=== PATIENT | female | born 1980 | race Caucasian/White ===

== ENCOUNTER 2017-01-16 14:04 | Emergency (ER) | payer SELFPAY ==
[2017-01-16] MEDS ORDERED: HYDROCODONE/APAP 5/325MG TABLET PO ONE (15:04)
[2017-01-16] MEDS ORDERED: Diph,Pert(Acell),Tet Vac 0.5 ML SYR IM ONE (15:39)
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
== END 2017-01-16 16:55 | disposition home or self-care (01) ==
LOC: ER 14:04
DX: R07.89 Other chest pain (principal); M79.622 Pain in left upper arm; R51 Headache; M54.2 Cervicalgia; R68.84 Jaw pain; R41.0 Disorientation, unspecified; G89.11 Acute pain due to trauma; V49.49XA Driver injured in collision with other motor vehicles in traffic accident, initial encounter
CPT/HCPCS: 70450; 70491; 71020; 90715; 96372; 99283; 99284

== ENCOUNTER 2017-04-30 14:35 | Emergency (ER) | payer SELFPAY ==
[2017-04-30] MEDS ORDERED: 0.9 % SODIUM CHLORIDE 1,000 ML BAG IV ONE ×2 (14:54→14:55)
[2017-04-30] MEDS ORDERED: DIPHENHYDRAMINE HCL IV 50 MG/ML VIAL IVP ONE (14:55)
[2017-04-30] MEDS ORDERED: PROMETHAZINE HCL 25 MG/ML VIAL IVP ONE (14:55)
[2017-04-30] MEDS ORDERED: MORPHINE SULFATE 5 MG/ML PFS IVP ONE (14:55)
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
[2017-04-30 15:39] LABS: HEMATOCRIT 43.7 % (35.0-47.0); HEMOGLOBIN 15.4 gm/dl (11.6-16.0); MEAN CELL VOLUME 87.2 fl (81-97); MEAN CORPUSCULAR HEMOGLOBIN 30.7 pg (27-33); MEAN CORPUSCULAR HGB CONC 35.2 g/dl (32-36); MEAN PLATELET VOLUME 10.4 fl (7.4-10.4); PLATELET COUNT 282 K/uL (130-400); RED BLOOD COUNT 5.01 M/uL (3.80-5.40); RED CELL DISTRIBUTION WIDTH 12.1 % (11.5-14.5); WHITE BLOOD COUNT W/O DIFF 16.1 K/uL (4.2-12.2)
[2017-04-30 15:58] LABS: URINE APPEARANCE CLEAR; URINE BILIRUBIN NEGATIVE (NEGATIVE); URINE BLOOD NEGATIVE (NEGATIVE); URINE COLOR YELLOW; URINE GLUCOSE (UA) NEGATIVE (NEGATIVE); URINE KETONE NEGATIVE (NEGATIVE); URINE LEUKOCYTE ESTERASE NEGATIVE (NEGATIVE); URINE NITRITE NEGATIVE (NEGATIVE); URINE PROTEIN NEGATIVE (NEGATIVE); URINE UROBILINOGEN 0.2 E.U./dL (0.20 - 1.00)
[2017-04-30 16:01] LABS: ALBUMIN 5.1 g/dL (4.0-5.0)
[2017-04-30 16:02] LABS: ALB/GLOB RATIO 1.7 (1.1-1.8); ALKALINE PHOSPHATASE 58 U/L (35-104); ALT/SGPT 31 U/L (<33); AST/SGOT 26 U/L (10.0-35.0); BLOOD UREA NITROGEN 7 mg/dL (6-20); CREATININE 0.6 mg/dL (0.5-0.9); EST GLOMERULAR FILTRATION RATE > 60 mL/min; GLUCOSE,RANDOM 117 mg/dL (74-109); LIPASE 13 U/L (13-60); TOTAL PROTEIN 8.1 g/dL (6.6-8.7)
[2017-04-30] MEDS ORDERED: HYDROMORPHONE HCL 1 MG/ML SYRINGE IVP ONE (16:19)
[2017-04-30] MEDS ORDERED: ONDANSETRON HCL IV 4 MG/2 ML VIAL IVP ONE (16:19)
--- NOTE | 2017-05-01 20:35 | CT SCAN REPORT ---
EXAM: CT SCAN ABDOMEN/PELVIS W CONTRAST HISTORY: MID ABDOMINAL PAIN WITH VOMITING FOR 15 HOURS. TECHNIQUE: Axial CT scan of the abdomen and pelvis performed following both oral and IV contrast administration utilizing a dose of 100 mL of Omnipaque-300 as the IV contrast. COMPARISON: None. FINDINGS: No calcified gallstones are seen within the gallbladder. Mild diffuse fatty infiltration of the liver with no focal hepatic mass evident. No definite splenic, adrenal, pancreatic, or renal mass identified. There is a small hiatal hernia. Oral contrast has not as yet reached the terminal ileum or cecum but I believe at least a portion of the appendix is visualized as a normal-caliber structure, with no definite appendicitis. No free intraperitoneal air or free intraperitoneal fluid identified. There is bilateral spondylolysis of L5 with degenerative disc disease at the lumbosacral interspace with mild spondylolisthesis of L5 on S1. IMPRESSION: 1. SMALL HIATAL HERNIA. 2. 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 3. NO APPENDICITIS SEEN. NO FREE AIR OR FREE FLUID EVIDENT. 4. MILD DIFFUSE FATTY INFILTRATION OF THE LIVER. JOB NUMBER: [id number] [facility]
== END 2017-04-30 18:44 | disposition home or self-care (01) ==
LOC: ER 14:35
DX: R10.13 Epigastric pain (principal); R11.2 Nausea with vomiting, unspecified
CPT/HCPCS: 99284 ×2; 96374; 96375; 96361; 83690; 80053; 81003; 81025; 85027; 74177; Q9967; J2405; J2270; J1170; J1200; J2550; J7030

== ENCOUNTER 2017-05-02 13:16 | Emergency (ER) | payer SELFPAY ==
--- NOTE | 2017-05-02 13:38 | Emergency Department Record ---
History of Present Illness - General Chief Complaint: Abdominal Pain Stated Complaint: ADOMINAL PAIN, CONSTIPATION Time Seen by Provider: 05/02/17 13:23 Source: Patient Mode of Arrival: Ambulatory Limitations: No limitations - History of Present Illness Initial Comments: 36 yo female presents with abdominal pain that started on the at 2am. She was seen for upper abdominal pain and vomiting. She had a CT scan that was negative. Since her DC home she has had some continued nausea and pain. The symptoms seem be related to eating or are worse with eating. No fevers. The pain now is more in the RUQ. She also reports a decrease in her BM's. No fever. No blood in the stool or vomiting. She has had a prior . She does feel constipated and bloated. MD Complaint: Abdominal pain -: Days(s) (2) Location: RUQ Radiation: RUQ Migration to: RUQ Quality: Aching Consistency: Constant Improves With: Nothing Worsens With: Eating Context: Other Associated Symptoms: Anorexia, Constipation - Related Data Previous Rx's Medication Instructions Recorded Ondansetron [Zofran Odt] 4 mg PO Q8H #15 tab.rapdis 04/30/17 Ranitidine HCl [Zantac] 150 mg PO BID #30 tablet 04/30/17 Hydrocodone/Acetaminophen [Embarrass 1 each PO Q6H #25 tablet 05/02/17 5-325 Tablet] Ondansetron [Zofran Odt] 4 mg PO Q8H #20 tab.rapdis 05/02/17 Allergies Allergy/AdvReac Type Severity Reaction Status Date / Time Penicillins [PENICILLINS] Allergy Unknown HIVES Verified 05/02/17 13:28 Review of Systems Constitutional: Denies: Chills, Fever, Malaise, Weakness Eyes: Denies: Eye discharge ENT: Denies: Congestion, Throat pain Respiratory: Denies: Cough, Dyspnea, Hemoptysis Cardiovascular: Denies: Chest pain, Syncope Endocrine: Denies: Fatigue Gastrointestinal: Reports: As per HPI, Abdominal pain, Constipation, Nausea, Vomiting. Denies: Diarrhea, Hematemesis, Hematochezia, Melena Genitourinary: Denies: Dysuria, Urgency Musculoskeletal: Denies: Arthralgia, Back pain, Myalgia Skin: Denies: Bruising, Change in color, Rash Neurological: Denies: Headache, Numbness, Weakness Psychiatric: Denies: Anxiety Hematological/Lymphatic: Denies: Blood Clots, Easy bleeding, Easy bruising, Swollen glands Past Medical History - SOCIAL HISTORY Smoking Status: Never smoker Drug Use: None - RESPIRATORY Hx Respiratory Disorders: No - CARDIOVASCULAR Hx Cardio Disorders: No - NEURO Hx Neuro Disorders: No - GI Hx GI Disorders: No - Hx Genitourinary Disorders: No - ENDOCRINE Hx Endocrine Disorders: No - MUSCULOSKELETAL Hx Musculoskeletal Disorders: Yes Comment:: scoliosis - PSYCH Hx Psych Problems: No - HEMATOLOGY/ONCOLOGY Hx Hematology/Oncology Disorders: No Physical Exam - General General Appearance: Alert, Oriented x3, Cooperative, No acute distress Limitations: No limitations - Head Head exam: Atraumatic. negative: Normal inspection - Eye Eye exam: Normal appearance. negative: Conjunctival injection, Scleral icterus - ENT ENT exam: Normal exam, Mucous membranes moist Ear exam: Normal external inspection Nasal Exam: Normal inspection Mouth exam: Normal external inspection - Neck Neck exam: Normal inspection, Full ROM. negative: Tenderness - Respiratory Respiratory exam: Normal lung sounds bilaterally. negative: Respiratory distress, Rhonchi, Stridor, Wheezes - Cardiovascular Cardiovascular Exam: Regular rate, Normal rhythm, Normal heart sounds - GI/Abdominal GI/Abdominal exam: Soft, Tenderness (Tender in the RUQ but soft abdomen, the abdomen is soft and otherwise non tender) - Rectal Rectal exam: Deferred - exam: Deferred - Extremities Extremities exam: Normal inspection, Full ROM, Normal capillary refill. negative: Pedal edema, Tenderness - Back Back exam: Reports: Normal inspection, Full ROM. Denies: CVA tenderness (R), CVA tenderness (L), Muscle spasm, Rash noted, Tenderness - Neurological Neurological exam: Alert, Normal gait, Oriented X3 - Psychiatric Psychiatric exam: Normal affect, Normal mood - Skin Skin exam: Dry, Intact, Normal color, Warm Course - Reevaluation(s) Reevaluation #1: 05/02/17 13:49 EMR from the initial visit reviewed 05/02/17 14:13 No acute changes on the CBC. Improved WBC count from prior visit (16 to 8) 05/02/17 14:26 No acute changes on the CMP or Lipase. 05/02/17 15:48 AAS is negative 05/02/17 15:54 Cholelithias with CBD on 7mm. The pain is controlled currently and labs are normal She will be referred to general surgery. 05/02/17 16:05 I SHAYNE Live We discussed the gallstone and CBD of 7mm Patient is tool tender in RUQ He recommends ED to ED transfer I SHAYNE Paulino who accepts the patient for transfer 05/02/17 16:28 Medical Decision Making - Lab Data Result diagrams: 05/02/17 13:50 05/02/17 13:50 Disposition Disposition: Transfer Clinical Impression: Abdominal pain, Biliary colic, Gall stones Disposition: Home, Self-Care Transfer To: [facility] Reason For Transfer: Gallstones Accepting Physician: Calos/Jefferson Time Discussed w/Accepting Physician: 16:34 Condition: (2) Stable Instructions: Biliary Colic (ED), Gallstones (ED) Additional Instructions: Go directly to the [facility] ER for evaluation Take your transfer packet Prescriptions: Hydrocodone/Acetaminophen [Embarrass 5-325 Tablet] 1 each PO Q6H #25 tablet Ondansetron [Zofran Odt] 4 mg PO Q8H #20 tab.rapdis Referrals: Hal Live [DOCTOR OF OSTEOPATH] - [facility] Specialty Clinics [Provider Group] Forms: Patient Portal Access Time of Disposition: 16:04 Quality - Quality Measures Quality Measures: N/A - Blood Pressure Screening Does Patient Have Any of the Following: No Blood Pressure Classification: Pre-Hypertensive BP Reading Systolic Measurement: 137 Diastolic Measurement: 87 Screening for High Blood Pressure: < Pre-Hypertensive BP, F/U Documented > [ G8950] Pre-Hypertensive Follow-up Interventions: Referral to alternative/primary care provider.
[2017-05-02] MEDS ORDERED: ONDANSETRON HCL IV 4 MG/2 ML VIAL IV ONE (13:44)
[2017-05-02] MEDS ORDERED: 0.9 % SODIUM CHLORIDE 1,000 ML BAG IV ONE (13:44)
[2017-05-02] MEDS ORDERED: KETOROLAC 30 MG/ML VIAL IVP ONE (13:44)
[2017-05-02 13:56] LABS: BASO % 0.2 % (0-6); EOS % 2.4 % (0-6); GRAN % 65.6 % (47-80); HEMATOCRIT 42.2 % (35.0-47.0); HEMOGLOBIN 14.3 gm/dl (11.6-16.0); MEAN CELL VOLUME 91.1 fl (81-97); MEAN CORPUSCULAR HEMOGLOBIN 30.9 pg (27-33); MEAN CORPUSCULAR HGB CONC 33.9 g/dl (32-36); MONO % 7.8 % (0-9); PLATELET COUNT 240 K/uL (130-400); RED BLOOD COUNT 4.63 M/uL (3.80-5.40); RED CELL DISTRIBUTION WIDTH 12.4 % (11.5-14.5); WHITE BLOOD COUNT W/O DIFF 8.5 K/uL (4.2-12.2)
[2017-05-02 14:11] LABS: BLOOD UREA NITROGEN 7 mg/dL (6-20); CREATININE 0.7 mg/dL (0.5-0.9); EST GLOMERULAR FILTRATION RATE > 60 mL/min
[2017-05-02 14:12] LABS: TOTAL PROTEIN 8.2 g/dL (6.6-8.7)
[2017-05-02 14:14] LABS: GLUCOSE,RANDOM 106 mg/dL (74-109)
[2017-05-02 14:16] LABS: ALB/GLOB RATIO 1.5 (1.1-1.8); ALBUMIN 4.9 g/dL (4.0-5.0); ALKALINE PHOSPHATASE 56 U/L (35-104); ALT/SGPT 25 U/L (<33); AST/SGOT 18 U/L (10.0-35.0)
[2017-05-02 14:17] LABS: LIPASE 14 U/L (13-60)
--- NOTE | 2017-05-04 06:34 | RADIOLOGY REPORT ---
DATE: 05/02/2017. EXAM: ABDOMEN. HISTORY: Abdominal pain. TECHNIQUE: Supine upright views of the abdomen were performed. FINDINGS: Nonspecific, nonobstructive bowel gas pattern. No evidence of free air. No radiopaque densities. The osseous structures are normal. IMPRESSION: NEGATIVE ABDOMEN EXAMINATION. JOB NUMBER: [id number] MTDD
--- NOTE | 2017-05-04 07:04 | ULTRASOUND REPORT ---
DATE: 05/02/2017. EXAM: ULTRASOUND OF THE ABDOMEN. HISTORY: Right upper quadrant pain. TECHNIQUE: Sonographic evaluation of the abdomen was performed using Grayscale imaging. FINDINGS: There is fatty infiltration of the liver. There is cholelithiasis. There is mild dilatation of the common bile duct measuring 7.0 mm. The pancreas is not well visualized. Spleen measurements are within normal limits. The kidneys are normal in size with no hydronephrosis or nephrolithiasis. The abdominal aorta and inferior vena cava are patent. IMPRESSION: 1. CHOLELITHIASIS. MILD DILATATION OF THE COMMON BILE DUCT MEASURING 7.0 MM. 2. FATTY INFILTRATION OF THE LIVER. 3. SUBOPTIMAL EVALUATION OF THE PANCREAS. JOB NUMBER: [id number] MTDD
== END 2017-05-02 17:15 | disposition home or self-care (01) ==
LOC: ER 13:16
DX: K80.80 Other cholelithiasis without obstruction (principal); R10.11 Right upper quadrant pain; R11.0 Nausea
CPT/HCPCS: 99284 ×2; 96374; 96375; 83690; 85025; 80053; 74018; 76700; J1885; J2405; J7030

== ENCOUNTER 2017-05-06 01:56 | Emergency (ER) | payer SELFPAY ==
[2017-05-06] MEDS ORDERED: 0.9 % SODIUM CHLORIDE 1,000 ML BAG IV ONE (02:01)
[2017-05-06] MEDS ORDERED: HYDROMORPHONE HCL 2 MG/ML VIAL IVP ONE (02:01)
[2017-05-06] MEDS ORDERED: ONDANSETRON HCL IV 4 MG/2 ML VIAL IVP ONE (02:01)
--- NOTE | 2017-05-06 02:05 | Emergency Department Record ---
History of Present Illness - General Stated Complaint: ABD PAIN, POST SURJURY Time Seen by Provider: 05/06/17 02:00 Source: Patient Mode of Arrival: Ambulatory Limitations: No limitations - History of Present Illness Initial Comments: 36 yo female presents with RUQ pain since surgery on . She had her gallbladder removed at [facility] due to RUQ pain and galls stones. She was able to be discharged the same day as surgery. The pain has increased about 2pm on Sunday. She states she had pain since surgery that was what she expected. Since 2pm she has pain with palpation and moving around. She points to one of her incisions as the location of the strongest pain. No drainage or pus. No fever. Dr Live is the patient's surgeon. She has been eating normally. She has had 2 bowel movements since the surgery. No chest pain or shortness of breath. It does hurt to cough or take a deep breath but only in the RUQ at the incision site. No calf pain or tenderness. MD Complaint: Abdominal pain -: Days(s) (2) Location: RUQ Radiation: RUQ Migration to: RUQ Consistency: Constant Improves With: Nothing Worsens With: Movement Associated Symptoms: Anorexia - Related Data Previous Rx's Medication Instructions Recorded Ondansetron [Zofran Odt] 4 mg PO Q8H #15 tab.rapdis 04/30/17 Ranitidine HCl [Zantac] 150 mg PO BID #30 tablet 04/30/17 Hydrocodone/Acetaminophen [[place] 1 each PO Q6H #25 tablet 05/02/17 5-325 Tablet] Ondansetron [Zofran Odt] 4 mg PO Q8H #20 tab.rapdis 05/02/17 Diazepam [Valium] 5 mg PO Q8H #15 tab 05/06/17 Ibuprofen [Motrin 600Mg] 600 mg PO Q6H #20 tablet 05/06/17 Allergies Allergy/AdvReac Type Severity Reaction Status Date / Time Penicillins [PENICILLINS] Allergy Unknown HIVES Verified 05/02/17 13:28 Review of Systems Constitutional: Denies: Chills, Fever, Malaise, Weakness Eyes: Denies: Eye discharge ENT: Denies: Congestion, Throat pain Respiratory: Denies: Cough, Dyspnea, Hemoptysis, Stridor, Wheezes Cardiovascular: Denies: Chest pain, Palpitations, Syncope Endocrine: Denies: Fatigue Gastrointestinal: Reports: Abdominal pain, Nausea. Denies: Hematemesis, Hematochezia Genitourinary: Denies: Dysuria, Urgency Musculoskeletal: Denies: Arthralgia, Back pain, Myalgia Skin: Denies: Bruising, Change in color, Rash Neurological: Denies: Headache, Numbness, Weakness Psychiatric: Denies: Anxiety Hematological/Lymphatic: Denies: Blood Clots, Easy bleeding, Easy bruising, Swollen glands Past Medical History - SOCIAL HISTORY Smoking Status: Never smoker Drug Use: None - RESPIRATORY Hx Respiratory Disorders: No - CARDIOVASCULAR Hx Cardio Disorders: No - NEURO Hx Neuro Disorders: No - GI Hx GI Disorders: No - Hx Genitourinary Disorders: No - ENDOCRINE Hx Endocrine Disorders: No - MUSCULOSKELETAL Hx Musculoskeletal Disorders: Yes Comment:: scoliosis - PSYCH Hx Psych Problems: No - HEMATOLOGY/ONCOLOGY Hx Hematology/Oncology Disorders: No Family Medical History Hx Cancer: Mother, Grandparents Hx Heart Disease: Grandparents Physical Exam - General General Appearance: Alert, Oriented x3, Cooperative, Other (tearful and crying) Limitations: No limitations - Head Head exam: Normocephalic, Normal inspection - Eye Eye exam: Normal appearance. negative: Conjunctival injection, Scleral icterus - ENT ENT exam: Normal exam, Mucous membranes moist Ear exam: Normal external inspection Nasal Exam: Normal inspection Mouth exam: Normal external inspection - Neck Neck exam: Normal inspection, Full ROM. negative: Tenderness - Respiratory Respiratory exam: Normal lung sounds bilaterally. negative: Respiratory distress - Cardiovascular Cardiovascular Exam: Regular rate, Normal rhythm, Normal heart sounds - GI/Abdominal GI/Abdominal exam: Soft, Normal bowel sounds, Guarding (RUQ at the lateral incision. Otherwise the abdomen is very soft and not tender), Tenderness, Other (intact sutures, no redness or pus. Soft abdomen. Non tender epigastric , LUQ, RLQ, LLQ). negative: Diminished bowel sounds, Distended, Rigid - Rectal Rectal exam: Deferred - exam: Deferred - Extremities Extremities exam: Normal inspection, Full ROM, Normal capillary refill. negative: Tenderness - Back Back exam: Reports: Normal inspection, Full ROM. Denies: CVA tenderness (R), Muscle spasm, Rash noted, Tenderness - Neurological Neurological exam: Alert, Normal gait, Oriented X3 - Psychiatric Psychiatric exam: Normal affect, Normal mood - Skin Skin exam: Dry, Intact, Normal color, Warm Course - Reevaluation(s) Reevaluation #1: 05/06/17 02:05 Vitals reviewed No fever or tachycardia. No hypoxia Recent [facility] records including CT and Us were reviewed 05/06/17 02:31 The CBC is negative for acute changes The HCG is negative 05/06/17 02:38 No acute changes on the CMP or Lipase 05/06/17 03:25 On recheck the patient is doing better. Pain is improved. Abdomen is very soft. Only tender over the right most incision site. No redness or drainage at the site. 05/06/17 03:28 CT scan reviewed. S/P cholecystectomy, remains a small amount of fluid in the area of gallbladder fossa with mild adjacent stranding. No definitive active bleed. No free air. There is distension of the common bile duct. No significant fluid collection. 05/06/17 03:50 The patient is doing very well. No fever. Pain is improved. No changes on the lab. She will get Toradol and Ofirmev and addtional IVF then reassess. 05/06/17 04:17 05/06/17 06:04 The fluids are complete. The patient slept comfortably. Still some pain in the RUQ with moving. Vitals reviewed. No acute changes. The patient was up to the restroom feeling much improved. 05/06/17 06:10 05/06/17 06:[address] Live regarding the CT results and labs. Findings on the CT are felt to be typical for her post op cholecystectomy. The patient responded well to the toradol. She can be sent home on NSAIDS and Valium as well. The patient was informed. We discussed resting today. Adding Motrin and Valium. We discussed reasons to return or be seen as well. The patient continues to feel much improved. 05/06/17 06:32 Medical Decision Making - Lab Data Result diagrams: 05/06/17 02:00 05/06/17 02:00 Disposition Disposition: Discharge Clinical Impression: Right upper quadrant pain Disposition: Home, Self-Care Condition: (1) Good Instructions: Abdominal Pain (ED) Additional Instructions: Return or be seen at [facility] where you had your surgery if worse , vomiting or fever Rest today. Avoid lifting, over exertion. Prescriptions: Diazepam [Valium] 5 mg PO Q8H #15 tab Ibuprofen [Motrin 600Mg] 600 mg PO Q6H #20 tablet Forms: Patient Portal Access Time of Disposition: 06:27 Quality - Quality Measures Quality Measures: N/A - Blood Pressure Screening Does Patient Have Any of the Following: No Blood Pressure Classification: Hypertensive Reading Systolic Measurement: 141 Diastolic Measurement: 75 Screening for High Blood Pressure: < Pre-Hypertensive BP, F/U Documented > [ [id number]] Pre-Hypertensive Follow-up Interventions: Referral to alternative/primary care provider.
[2017-05-06 02:15] LABS: BASO % 0.2 % (0-6); EOS % 3.1 % (0-6); GRAN % 53.8 % (47-80); HEMATOCRIT 40.3 % (35.0-47.0); HEMOGLOBIN 13.2 gm/dl (11.6-16.0); MEAN CORPUSCULAR HEMOGLOBIN 30.1 pg (27-33); MEAN CORPUSCULAR HGB CONC 32.8 g/dl (32-36); MEAN PLATELET VOLUME 9.7 fl (7.4-10.4); MONO % 6.9 % (0-9); PLATELET COUNT 292 K/uL (130-400); RED BLOOD COUNT 4.38 M/uL (3.80-5.40); RED CELL DISTRIBUTION WIDTH 11.9 % (11.5-14.5); WHITE BLOOD COUNT W/O DIFF 8.4 K/uL (4.2-12.2)
[2017-05-06 02:26] LABS: INR 0.9; PARTIAL THROMBOPLASTIN TIME 27.5 SECONDS (24.5-39.1); PROTHROMBIN TIME (PATIENT) 9.8 SECONDS (9.5-12.1)
[2017-05-06 02:27] LABS: BLOOD UREA NITROGEN 8 mg/dL (6-20); CREATININE 0.7 mg/dL (0.5-0.9); EST GLOMERULAR FILTRATION RATE > 60 mL/min
[2017-05-06 02:30] LABS: GLUCOSE,RANDOM 108 mg/dL (74-109)
[2017-05-06 02:32] LABS: ALT/SGPT 23 U/L (<33); AST/SGOT 16 U/L (10.0-35.0)
[2017-05-06 02:33] LABS: ALBUMIN 4.7 g/dL (4.0-5.0); ALKALINE PHOSPHATASE 61 U/L (35-104); LIPASE 17 U/L (13-60)
[2017-05-06] MEDS ORDERED: KETOROLAC 30 MG/ML VIAL IVP ONE (03:39)
[2017-05-06] MEDS ORDERED: ACETAMINOPHEN 1,000 MG/100 ML BTL IVPB ONE (03:39)
[2017-05-06] MEDS ORDERED: 0.9 % SODIUM CHLORIDE 1000ML 1,000 ML IV ONE (03:39)
[2017-05-06] MEDS ORDERED: DIAZEPAM 5 MG TABLET PO ONE (06:25)
--- NOTE | 2017-05-07 20:04 | CT SCAN REPORT ---
EXAM: CT SCAN ABDOMEN/PELVIS W CONTRAST HISTORY: STATUS POST CHOLECYSTECTOMY 05/03/2017, PERSISTENT RIGHT UPPER QUADRANT PAIN. TECHNIQUE: Sequential axial images were obtained from the diaphragms through the ischiorectal fossa after the intravenous administration of 100 mL of Omnipaque-300 contrast material. FINDINGS: The visualized lung bases appear normal. There is gas fluid collection in the a gas fluid collection in the gallbladder fossa suspicious for bile leak. There is mild surrounding inflammatory change. The pancreas and spleen appear normal. The adrenal glands and kidneys appear normal. No CT findings suggestive of obstructive uropathy. The small and large bowel appears normal. The osseous structures appear normal. IMPRESSION: GAS AND FLUID IN THE GALLBLADDER FOSSA SUSPICIOUS FOR BILE LEAK. THERE IS MILD INFLAMMATORY CHANGE OF THE ADJACENT MESENTERY. THE REMAINDER OF THE EXAMINATION IS UNREMARKABLE. JOB NUMBER: [id number] MTDD
== END 2017-05-06 06:58 | disposition home or self-care (01) ==
LOC: ER 01:56
DX: R10.11 Right upper quadrant pain (principal); Z90.49 Acquired absence of other specified parts of digestive tract
CPT/HCPCS: 99284 ×2; 96374; 96375; 83690; 85025; 85730; 85610; 80053; 84703; 74177; Q9967; J3490; J1885; J2405; J1170; J7030